=== PATIENT | female | born 1955 | race Two or more races ===

== ENCOUNTER 2020-08-19 05:57 | Day surgery (SDC) | payer OTHER ==
[~2020-08-19 05:57] MED LIST: COZAAR100 MG PO; COZAAR25 MG PO; FORTAMET500 MG PO; NORVASC PO; SYNTHROID100 MCG PO
[2020-08-19] MEDS ORDERED: MACROBID 100 M100 MG PO (11:32)
== END 2020-08-19 14:05 | disposition home or self-care (01) ==
LOC: CIR.AMB 05:57
PROVIDERS: ATTEND Obstetrics & Gynecology Gynecology
DX: N81.6 Rectocele (principal); N81.5 Vaginal enterocele; Z20.822 Contact with and (suspected) exposure to COVID-19